=== PATIENT | male | born 2000 | race Caucasian/White ===

== ENCOUNTER 2024-01-28 19:47 | Emergency (ER) | payer BC ==
[~2024-01-28] VITALS: Ht 185.4 cm; Wt 77.3 kg
[2024-01-28] MEDS ORDERED: AlOH3/diphen/Lidoc/MgOH2/Simet Oral Susp 10 ML UD Syringe PO ONE (20:30)
[2024-01-28] MEDS ORDERED: Acetaminophen 500 MG TAB PO ONE (20:30)
[2024-01-28] MEDS ORDERED: Ibuprofen 400 MG TAB PO ONE (20:30)
[2024-01-28 22:13] LABS: MONOSCREEN POSITIVE
[2024-01-28] MEDS ORDERED: LIDOCAINE HC20 MG/M2 PO (22:29)
[2024-01-28] MEDS ORDERED: Lidocaine 2% Viscous 15 ML UNIT DOSE MM PRN (22:30)
[2024-01-28 22:43] VITALS: BP 138/87; PULSE 96; TEMP 98.7
== END 2024-01-28 22:43 | disposition home or self-care (01) ==
LOC: COL.ER 19:47
PROVIDERS: Nurse Practitioner Primary Care
DX: B27.90 Infectious mononucleosis, unspecified without complication (principal)